=== PATIENT | male | born 1955 | race Asian ===

== ENCOUNTER 2016-09-21 15:48 | Emergency (ER) | payer OTHER ==
[~2016-09-21] VITALS: Ht 167.6 cm; Wt 74.9 kg
[2016-09-21 21:21] VITALS: BP 141/88
== END 2016-09-21 21:21 | disposition home or self-care (01) ==
LOC: ED 15:48
DX: S83.92XA Sprain of unspecified site of left knee, initial encounter (principal); M62.830 Muscle spasm of back; X58.XXXA Exposure to other specified factors, initial encounter; Y99.8 Other external cause status; Y93.89 Activity, other specified; Y92.89 Other specified places as the place of occurrence of the external cause

== ENCOUNTER 2016-12-05 08:23 | Emergency (ER) | payer OTHER ==
[2016-12-05 11:09] VITALS: BP 148/104
== END 2016-12-05 11:09 | disposition home or self-care (01) ==
LOC: ED 08:23
DX: S09.8XXA Other specified injuries of head, initial encounter (principal); B02.8 Zoster with other complications; W22.8XXA Striking against or struck by other objects, initial encounter; Y93.01 Activity, walking, marching and hiking; Y99.8 Other external cause status; Y92.89 Other specified places as the place of occurrence of the external cause

== ENCOUNTER 2016-12-07 17:37 | Inpatient (IN) | payer BC ==
[~2016-12-07] VITALS: Ht 170.2 cm; Wt 73.5 kg
[2016-12-07 21:50] LABS: BASOPHIL % 0.2 % (0-2); PLATELET COUNT 226 x10^3mcL (130-400); RED CELL DISTRIBUTION WIDTH 13.7 % (11.5-14.5)
[2016-12-07 22:01] LABS: CALCIUM 8.5 mg/dL (8.5-10.1); CARBON DIOXIDE 26.3 mmol/L (21-32); CHLORIDE SERUM 101 mmol/L (98-107); CREATININE SERUM 0.8 mg/dL (0.7-1.3); GFR1 > 60 mL/min; GLUCOSE SERUM 142 mg/dL (74-106); POTASSIUM SERUM 4.3 mmol/L (3.5-5.1); SODIUM SERUM 137 mmol/L (136-145)
[2016-12-07 22:05] LABS: ALBUMIN 3.5 g/dL (3.4-5.0); ALKALINE PHOSPHATASE 49 U/L (46-116); ALT/SGPT 21 U/L (16-63); AST/SGOT 15 U/L (15-37); BILIRUBIN TOTAL 0.36 mg/dL (0.20-1.00); TOTAL PROTEIN, SERUM 7.1 g/dL (6.4-8.2)
[2016-12-07] MEDS ORDERED: IBUPROFEN400 MG PO (22:17)
[2016-12-07] MEDS ORDERED: ZOVIRAX800 MG PO (22:18)
[2016-12-07] MEDS ORDERED: PREDNISONE20 MG PO (22:18)
[2016-12-07] MEDS ORDERED: NORCO1 TA2 PO (22:19)
[2016-12-07] MEDS ORDERED: BUPROPION HCL150 M1 PO (22:19)
[2016-12-07 23:08] VITALS: BP 120/89
[2016-12-07 23:10] VITALS: BP 120/89
[2016-12-07 23:52] LABS: T3 TOTAL 0.93 ng/mL
[2016-12-08 00:49] LABS: FREE T4 1.05 ng/dL (0.76-1.46); FREE THYROXINE INDEX 2.6 ug/dL (1.4-4.5); T4(THYROXINE) 7.8 ug/dL (4.7-13.3)
[2016-12-08 00:50] LABS: PHOSPHOROUS 3.1 mg/dL (2.5-4.9)
[2016-12-08 06:56] LABS: ALBUMIN 3.4 g/dL (3.4-5.0); ALKALINE PHOSPHATASE 49 U/L (46-116); ALT/SGPT 21 U/L (16-63); AST/SGOT 16 U/L (15-37); BILIRUBIN TOTAL 0.4 mg/dL (0.20-1.00); CALCIUM 8.5 mg/dL (8.5-10.1); CARBON DIOXIDE 25.2 mmol/L (21-32); CHLORIDE SERUM 98 mmol/L (98-107); CREATININE SERUM 0.7 mg/dL (0.7-1.3); GFR1 > 60 mL/min; GLUCOSE SERUM 124 mg/dL (74-106); POTASSIUM SERUM 4.5 mmol/L (3.5-5.1); SODIUM SERUM 137 mmol/L (136-145); TOTAL PROTEIN, SERUM 6.4 g/dL (6.4-8.2)
[2016-12-08 09:53] LABS: microscopic required? NO
[2016-12-08 10:00] LABS: UA SPECIFIC GRAVITY <=1.005 (1.005-1.035); urine erythrocyte NEGATIVE (NEGATIVE)
[2016-12-08 10:34] VITALS: BP 155/100
[2016-12-08 13:42] VITALS: BP 156/95
[2016-12-08 21:37] VITALS: BP 138/86
[2016-12-09 05:46] VITALS: BP 126/73
[2016-12-09 06:02] LABS: BASOPHIL % 0.4 % (0-2); PLATELET COUNT 242 x10^3mcL (130-400)
[2016-12-09 06:32] LABS: CALCIUM 8.3 mg/dL (8.5-10.1); CARBON DIOXIDE 27.4 mmol/L (21-32); CHLORIDE SERUM 102 mmol/L (98-107); CREATININE SERUM 0.8 mg/dL (0.7-1.3); GFR1 > 60 mL/min; GLUCOSE SERUM 109 mg/dL (74-106); POTASSIUM SERUM 4.6 mmol/L (3.5-5.1); SODIUM SERUM 137 mmol/L (136-145)
[2016-12-09 08:46] VITALS: BP 140/86
[2016-12-09 14:00] VITALS: BP 140/70
[2016-12-09 18:50] VITALS: BP 148/89
[2016-12-09 22:04] VITALS: BP 137/84
[2016-12-10 06:03] VITALS: BP 122/77
[2016-12-10 07:15] LABS: BASOPHIL % 0.1 % (0-2); PLATELET COUNT 228 x10^3mcL (130-400); RED CELL DISTRIBUTION WIDTH 13.9 % (11.5-14.5)
[2016-12-10 07:18] LABS: CARBON DIOXIDE 25.8 mmol/L (21-32); CHLORIDE SERUM 102 mmol/L (98-107); CREATININE SERUM 0.9 mg/dL (0.7-1.3); GFR1 > 60 mL/min; GLUCOSE SERUM 114 mg/dL (74-106); POTASSIUM SERUM 4.3 mmol/L (3.5-5.1); SODIUM SERUM 136 mmol/L (136-145)
[2016-12-10 09:38] VITALS: BP 142/10
[2016-12-10 12:30] VITALS: BP 142/99
[2016-12-10 14:51] VITALS: BP 142/99
[2016-12-10] MEDS ORDERED: NEU300 PO (15:11)
== END 2016-12-10 15:45 | disposition home or self-care (01) | DRG 865 ==
LOC: ED 17:37 → DU 22:07 → MU 22:07 → DU 22:47 → MU 12-08 11:13
PROVIDERS: Emergency Medicine; ADMIT Family Medicine
DX: B02.8 Zoster with other complications (principal); N17.0 Acute kidney failure with tubular necrosis; K59.00 Constipation, unspecified; R73.03 Prediabetes; E78.5 Hyperlipidemia, unspecified; D64.9 Anemia, unspecified
CPT/HCPCS: 82962; 83880; 84439; J0133; J1200; J3010; J3490; J7030; J7512; Q0092

== ENCOUNTER 2018-05-22 05:05 | Inpatient (IN) | payer BC ==
[~2018-05-22] VITALS: Ht 165.1 cm; Wt 76.3 kg
[~2018-05-22 05:05] MED LIST: BUPROPION HCL150 M1 PO; IBUPROFEN400 MG PO; NEU300 PO; NORCO1 TA2 PO; PREDNISONE20 MG PO; ZOVIRAX800 MG PO
[2018-05-22 05:06] VITALS: Ht 165.1 cm; Wt 76.3 kg
[2018-05-22 05:57] LABS: BASOPHIL % 0.5 % (0-2); PLATELET COUNT 179 x10^3mcL (130-400); RED CELL DISTRIBUTION WIDTH 12.8 % (11.5-14.5)
[2018-05-22 06:17] LABS: CALCIUM 8.5 mg/dL (8.5-10.1); CARBON DIOXIDE 28.6 mmol/L (21-32); CHLORIDE SERUM 102 mmol/L (98-107); GFR1 > 60 mL/min; GLUCOSE SERUM 159 mg/dL (74-106); SODIUM SERUM 139 mmol/L (136-145)
[2018-05-22 06:21] LABS: ALBUMIN 3.6 g/dL (3.4-5.0); ALKALINE PHOSPHATASE 53 U/L (46-116); ALT/SGPT 36 U/L (16-63); AST/SGOT 27 U/L (15-37); BILIRUBIN TOTAL 0.33 mg/dL (0.20-1.00)
[2018-05-22 09:28] LABS: T3 TOTAL 0.96 ng/mL
[2018-05-22 09:40] LABS: MAGNESIUM 1.9 mg/dL (1.8-2.4); PHOSPHOROUS 3.9 mg/dL (2.5-4.9)
[2018-05-22 09:41] LABS: CHOLESTEROL/HDL RATIO 2.5
[2018-05-22 09:54] LABS: FREE T4 0.95 ng/dL (0.76-1.46); FREE THYROXINE INDEX 2.8 ug/dL (1.4-4.5)
[2018-05-22 10:20] VITALS: BP 133/95
[2018-05-22 13:16] VITALS: BP 133/87
[2018-05-22 17:36] VITALS: BP 137/95
[2018-05-22 21:03] VITALS: BP 142/88
[2018-05-23 05:21] VITALS: BP 123/82
[2018-05-23 06:45] LABS: BASOPHIL % 0.4 % (0-2); PLATELET COUNT 181 x10^3mcL (130-400); RED CELL DISTRIBUTION WIDTH 12.9 % (11.5-14.5)
[2018-05-23 07:02] LABS: CALCIUM 8.8 mg/dL (8.5-10.1); CARBON DIOXIDE 27.2 mmol/L (21-32); CHLORIDE SERUM 104 mmol/L (98-107); CREATININE SERUM 0.9 mg/dL (0.7-1.3); GFR1 > 60 mL/min; GLUCOSE SERUM 100 mg/dL (74-106); MAGNESIUM 1.8 mg/dL (1.8-2.4); PHOSPHOROUS 3.2 mg/dL (2.5-4.9); POTASSIUM SERUM 3.9 mmol/L (3.5-5.1); SODIUM SERUM 139 mmol/L (136-145)
[2018-05-23 08:57] VITALS: BP 125/97
[2018-05-23] MEDS ORDERED: LIPI10 PO (12:23)
[2018-05-23 12:45] VITALS: BP 125/97
== END 2018-05-23 13:37 | disposition home or self-care (01) | DRG 880 ==
LOC: ED 05:05 → DU 06:59
PROVIDERS: Emergency Medicine; ADMIT Family Medicine
DX: F41.9 Anxiety disorder, unspecified (principal); G47.00 Insomnia, unspecified; Z60.2 Problems related to living alone; R73.03 Prediabetes; E78.5 Hyperlipidemia, unspecified; Z91.041 Radiographic dye allergy status; Z91.013 Allergy to seafood; Z79.899 Other long term (current) drug therapy
CPT/HCPCS: 83880; 84439; 85378; J3010; J7030; Q0092